=== PATIENT | male | born 1970 | race Caucasian/White ===

== ENCOUNTER 2017-05-26 19:15 | Emergency (ER) | payer OTHER ==
[~2017-05-26] VITALS: Ht 180.3 cm; Wt 95.0 kg
[2017-05-26 19:20] VITALS: BP 133/86
[2017-05-26] MEDS ORDERED: DOCUSATE 50 MG/5 ML ORAL SOL OT ONE (19:30)
[2017-05-26] MEDS ORDERED: DOCUSATE 50 MG/5 ML ORAL SOL ONE (19:44)
[2017-05-26] MEDS ORDERED: MECLIZINE CHEWABLE 25 MG TAB ONE (19:44)
[2017-05-26] MEDS ORDERED: MECLIZINE CHEWABLE 25 MG TAB PO ONE (20:00)
== END 2017-05-26 20:56 | disposition home or self-care (01) ==
LOC: ED 20:51
DX: H61.23 Impacted cerumen, bilateral (principal); H93.11 Tinnitus, right ear; R42 Dizziness and giddiness
CPT/HCPCS: 69209